=== PATIENT | male | born 1985 | race Caucasian/White ===

== ENCOUNTER 2017-08-04 19:56 | Emergency (ER) | payer OTHER ==
[2017-08-04 20:27] VITALS: BP 116/72; PULSE 90; TEMP 98.4; BMI 23.7
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
== END 2017-08-04 20:47 | disposition home or self-care (01) ==
LOC: JERFT 19:56
DX: S50.312A Abrasion of left elbow, initial encounter (principal); S60.511A Abrasion of right hand, initial encounter; Y35.811A Legal intervention involving manhandling, law enforcement official injured, initial encounter; Y93.89 Activity, other specified; Y92.89 Other specified places as the place of occurrence of the external cause; Y99.0 Civilian activity done for income or pay
CPT/HCPCS: 99281-25